=== PATIENT | male | born 1960 | race Caucasian/White ===

== ENCOUNTER 2021-02-05 21:52 | Emergency (ER) | payer BC, SELFPAY ==
[2021-02-05 22:10] VITALS: PULSE 67; RESP 16; TEMP 36.6; O2SAT 99
[2021-02-05] MEDS: DOXYCYCLINE HYCLATE 100 MG TABLET PO (22:51)
[2021-02-05] MEDS: LIDO 1%/SOD BICARB 8.4% (10ML) 10 ML SYRINGE INJ (22:51)
[2021-02-05] MEDS: TET,DIPH,PERTUSS(ACELL),VAC/PF 0.5 ML SYRINGE IM (22:51)
[2021-02-05 23:30] VITALS: BP 135/75; PULSE 59; RESP 16; O2SAT 100
--- NOTE | 2021-02-06 05:14 | ED.WOUNDLAC ---
HPI - Wound/Laceration General Chief Complaint: Wound/Laceration Stated Complaint: RIGHT HAND MIDDLE FINGER LACERATION Time Seen by Provider: 02/05/21 21:59 Source: patient Mode of arrival: Ambulatory History of Present Illness HPI narrative: 61-year-old male nonsmoker with noncontributory medical history presents with a chief complaint of a dog bite on the extensor surface of his right middle finger. He states that he is watching a friend's dog, normally very kind and sweet dog that had been acting appropriate when the dog got a hold of his bag of vitamins. He was concerned that if the dog were to ingest the vitamins she would get sick so when he reached to pull the bag of vitamins back his finger was caught in the dog's mouth. He has an irregular laceration on the finger but full range of motion without a loss of strength or sensation. There is a small puncture wound on the volar aspect of the left wrist as well. Related Data Previous Rx's Medication Instructions Recorded doxycycline hyclate 100 mg tablet 100 mg PO BID #20 tab 02/05/21 metronidazole 500 mg tablet 500 mg PO Q8H #30 tab 02/05/21 Allergies Allergy/AdvReac Type Severity Reaction Status Date / Time Iodine and Iodide Containing Allergy Verified 02/05/21 22:13 Produc Review of Systems Review of Systems Narrative: GENERAL: Denies chills, fatigue, malaise, fever, sweats. HEENT: Denies sinus pain, ear pain, sore throat, difficulty swallowing, dizziness. RESPIRATORY: Denies dyspnea, cough, wheezing, hemoptysis, sputum. CARDIOVASCULAR: Denies chest pain, palpitations, orthopnea, edema, GASTROINTESTINAL: Denies nausea, vomiting, abdominal pain, diarrhea, constipation, melena. : Denies dysuria, frequency, incontinence, hematuria, urinary retention. MUSCULOSKELETAL: See HPI SKIN: See HPI NEUROLOGIC: Denies weakness, headache, numbness, change in speech, confusion, seizures, incoordination. PSYCHIATRIC: No concerning psychosocial issues. 12 point review of systems is negative except for those stated above Exam Initial Vital Signs Initial Vital Signs: Vital Signs Temperature 97.9 F 02/05/21 22:10 Pulse Rate 67 02/05/21 22:10 Respiratory Rate 16 02/05/21 22:10 Pulse Oximetry 99 02/05/21 22:10 Procedures Laceration Repair Laceration 1: Site: hand Side (If applicable): right Size (cm): 2.5 Description: irregular Depth: simple, single layer and involves tendon (Attending glide viewed in a bloodless field and no obvious injury noted) Local Anesthetic: lidocaine 1% and with bicarb Amount of anesthesia used (mL): 3 Pre-repair: wound explored, irrigated extensively and deep structures intact Skin layer closed with: nylon Number of sutures: 5 Technique: simple, interrupted Laceration 2: Site: hand Side (If applicable): left Size (cm): 0.25 Description: linear Depth: simple, single layer Pre-repair: wound explored and deep structures intact Skin layer closed with: nylon Size (cm): 5-0 Number of sutures: 1 Technique: simple, interrupted Course Orders Ordered: Discontinued Medications Diphtheria/Tetanus/Acell Pertussis (Tet,Diph,Pertuss(Acell),Vac/Pf 0.5 Ml Syringe) 0.5 ml IM .ONCE ONE Stop: 02/05/21 22:43 Last Admin: 02/05/21 22:51 Dose: 0.5 ml Documented by: FAN Doxycycline Hyclate (Doxycycline Hyclate 100 Mg Tablet) 100 mg PO NOW ONE Stop: 02/05/21 22:44 Last Admin: 02/05/21 22:51 Dose: 100 mg Documented by: FAN Lidocaine/Sodium Bicarbonate (Lido 1%/Sod Bicarb 8.4% (10ml) 10 Ml Syringe) 10 ml INJ NOW ONE Stop: 02/05/21 22:43 Last Admin: 02/05/21 22:51 Dose: 10 ml Documented by: FAN Vital Signs Vital signs: Vital Signs - 8 hr 02/05/21 22:10 02/05/21 23:30 Temperature 97.9 F Pulse Rate 67 59 L Respiratory Rate 16 16 Blood Pressure 135/75 Pulse Oximetry 99 100 Discharge Plan Departure Patient Disposition: Home Clinical Impression: Laceration Dog bite Qualifiers: Encounter type: initial encounter Qualified Code(s): W54.0XXA - Bitten by dog, initial encounter Instructions: DI for Laceration Repair, DI for Dog Bite Activity Restrictions/Additional Instructions: *You have been diagnosed with [dog bite with laceration right hand] *What to do: *Please continue to take your regular medications as directed. [ ] New medication prescriptions sent to your pharmacy: [ ] [x ] New medication written as a paper prescription [ ] No new medications given * Please keep the wound clean and dry to the best of your ability. Please monitor for signs of infection such as redness to the skin or increasing pain. Have the sutures removed by your doctor in about 7 days. If you are unable to get into your doctor, we would be happy to remove the sutures in that same timeframe. *If you do not have a primary care provider please contact the [facility] Resource line at [phone]. They will ask some questions about your medical history and help get you set up with a doctor in the community. *Return to Emergency Department if you should have any new, worsening or concerning symptoms, such as [fever greater than 101 F, shaking chills, worsening pain, persistent vomiting or other bothersome symptoms] Prescriptions: New doxycycline hyclate 100 mg tablet 100 mg PO BID Qty: 20 RF: 0 metronidazole 500 mg tablet 500 mg PO Q8H Qty: 30 RF: 0
== END 2021-02-05 23:31 | disposition home or self-care (01) ==
PROVIDERS: Emergency Provider Emergency Medicine
DX: S61.252A Open bite of right middle finger without damage to nail, initial encounter (principal); W54.0XXA Bitten by dog, initial encounter; Z23 Encounter for immunization
CPT/HCPCS: 12002; 29130; 90471; 99283; 99284; 90715